=== PATIENT | female | born 1990 | race Caucasian/White ===

== ENCOUNTER 2024-06-04 09:09 | Outpatient (RCR) | payer BC, SELFPAY ==
[2024-06-04 09:54] LABS: HCG Qualitative,Urine Negative
--- NOTE | 2024-06-04 10:00 | XR_ITS ---
Examination: Nuclear medicine gastric emptying study Exam date and time: 05/04/2024 1212 hours INDICATIONS: Diagnosis gastroesophageal reflux disease nausea vomiting abnormal weight loss vomiting eating food 3 years TECHNIQUE AND FINDINGS: Oral administration 2.1 mCi technetium 99m sulfur colloid Retention of gastric activity at 120 minutes is 63.4% normal less than 50% IMPRESSION: Abnormal nuclear medicine gastric emptying study
== END 2024-06-09 23:59 | disposition home or self-care (01) ==
LOC: SNUC 09:09
PROVIDERS: PCP Family Medicine; Referring Provider Internal Medicine Gastroenterology; Visit Provider Internal Medicine Gastroenterology
DX: R93.89 Abnormal findings on diagnostic imaging of other specified body structures (principal); Z32.00 Encounter for pregnancy test, result unknown
CPT/HCPCS: 78264; 81025; A9541